=== PATIENT | male | born 1975 | race Caucasian/White ===

== ENCOUNTER 2018-12-03 00:37 | Emergency (ER) | payer MEDICAID ==
[~2018-12-03] VITALS: Ht 172.7 cm; Wt 73.0 kg
[2018-12-03] MEDS ORDERED: BACITRACIN ZINC OINT UDPKT TOP ONE (02:45)
[2018-12-03] MEDS ORDERED: LIDOCAINE 1%/EPI 1:100,000 10 ML VIAL IJ ONE (02:45)
[2018-12-03] MEDS ORDERED: HYDROCODONE/ACETAMINOPHEN 5/325MG TABLET PO ONE (02:45)
[2018-12-03] MEDS ORDERED: LIDOCAINE HCL/EPINEPHRINE 1%-EPI 1:100,000 20 ML VIAL INFIL NR (03:00)
[2018-12-03] MEDS ORDERED: CEFAZOLIN 1000MG PREMIX 50 ML IV ONE (04:30)
[2018-12-03] MEDS ORDERED: MORPHINE SULFATE 10 MG/ML CPJ IM ONE (05:00)
[2018-12-03] MEDS ORDERED: ONDANSETRON 4MG ODT PO ONE (05:00)
[2018-12-03] MEDS ORDERED: MORPHINE SULFATE 4 MG/ML CPJ (NOT FOR IM USE) IV NR (05:15)
[2018-12-03] MEDS ORDERED: KETOROLAC 60MG/2ML VIAL IM ONE (05:45)
[2018-12-03] MEDS ORDERED: HYDROCODONE/ACETAMINOPHEN 10/325MG TABLET PO ONE (07:00)
[2018-12-03 09:25] VITALS: BP 120/87
== END 2018-12-03 09:53 | disposition short-term general hospital (02) ==
LOC: ER 00:37
DX: S52.352A Displaced comminuted fracture of shaft of radius, left arm, initial encounter for closed fracture (principal); S52.252A Displaced comminuted fracture of shaft of ulna, left arm, initial encounter for closed fracture; F20.9 Schizophrenia, unspecified; Y08.89XA Assault by other specified means, initial encounter; Y93.89 Activity, other specified; Y92.89 Other specified places as the place of occurrence of the external cause; Y99.8 Other external cause status
CPT/HCPCS: 12002; 73090; 73130; 96365; 96366; 96372; 96375; 99285; J0690; J1885; J2270; J3490; Q0162

== ENCOUNTER 2019-03-12 19:10 | Emergency (ER) | payer SELFPAY ==
[~2019-03-12] VITALS: Ht 172.7 cm; Wt 80.0 kg
[2019-03-13 00:04] LABS: BASOPHILS % 0.8 % (0.0-2.0); EOSINOPHILS % 4.2 % (0.0-5.0); HEMATOCRIT. 40.3 % (42.0-52.0); HEMOGLOBIN. 13.2 g/dL (14.0-18.0); LYMPHOCYTES % 33.9 % (20.0-50.0); MEAN CORPUSCULAR HEMOGLOBIN 28.8 pg (28.0-32.0); MEAN CORPUSCULAR VOLUME 88.2 fL (80.0-94.0); MEAN PLATELET VOLUME 8.8 fl (7.4-10.4); MONOCYTES % 9.3 % (2.0-8.0); NEUTROPHILS % 51.8 % (40.0-76.0); PLATELET 265 x1000/uL (130-400); RED BLOOD CELL COUNT 4.56 mill/uL (4.7-6.1); RED CELL DISTRIBUTION WIDTH 14.9 % (11.6-14.6)
[2019-03-13 00:13] LABS: CHLORIDE 108 mEq/L (98-107)
[2019-03-13 00:16] LABS: ETHANOL BLOOD 104 mg/dL
[2019-03-13 00:45] LABS: CLARITY URINE CLEAR (CLEAR); COLOR URINE YELLOW (YELLOW); KETONES URINE NEGATIVE (NEGATIVE); LEUKOCYTE ESTERASE URINE NEGATIVE (NEGATIVE); NITRITE URINE NEGATIVE (NEGATIVE); OCCULT BLOOD URINE NEGATIVE (NEGATIVE); PROTEIN URINE NEGATIVE (NEGATIVE); SPECIFIC GRAVITY URINE 1.021 (1.005-1.030); UROBILINOGEN URINE 0.2 E.U./dL (0.2-1.0)
[2019-03-13 01:04] LABS: *AMPHETAMINES SCREEN URINE PRESUMTIVE POSITIVE (NEGATIVE); *BARBITURATES SCREEN URINE NEGATIVE (NEGATIVE)
[2019-03-13 01:05] LABS: *BENZODIAZEPINES SCREEN URINE PRESUMTIVE POSITIVE (NEGATIVE); *COCAINE SCREEN URINE NEGATIVE (NEGATIVE); METHADONE URINE SCREEN NEGATIVE (NEGATIVE); OPIATES URINE SCREEN NEGATIVE (NEGATIVE)
[2019-03-13 01:06] LABS: CANNABINOID URINE SCREEN PRESUMTIVE POSITIVE (NEGATIVE); PHENCYCLIDINE URINE SCREEN PRESUMTIVE POSITIVE (NEGATIVE)
[2019-03-13 06:44] VITALS: BP 126/73
== END 2019-03-13 06:54 | disposition home or self-care (01) ==
LOC: ER 19:17
DX: F15.10 Other stimulant abuse, uncomplicated (principal); F16.10 Hallucinogen abuse, uncomplicated; R41.82 Altered mental status, unspecified; F20.9 Schizophrenia, unspecified; F12.10 Cannabis abuse, uncomplicated; E87.6 Hypokalemia; D64.9 Anemia, unspecified; F10.10 Alcohol abuse, uncomplicated; Y90.5 Blood alcohol level of 100-119 mg/100 ml
CPT/HCPCS: 36415; 80053; 80305; 80320; 81003; 85025; 99283; Z7610; G0480

== ENCOUNTER 2019-06-13 23:35 | Emergency (ER) | payer MEDICAID ==
[~2019-06-13] VITALS: Ht 172.7 cm; Wt 78.0 kg
[2019-06-14] MEDS ORDERED: KETOROLAC 60MG/2ML VIAL IM STA (01:17)
[2019-06-14 11:03] VITALS: BP 112/78
== END 2019-06-14 11:09 | disposition home or self-care (01) ==
LOC: ER 23:35
DX: M79.672 Pain in left foot (principal); F12.10 Cannabis abuse, uncomplicated; F15.10 Other stimulant abuse, uncomplicated; F16.10 Hallucinogen abuse, uncomplicated; Z59.0 Homelessness; Z87.828 Personal history of other (healed) physical injury and trauma
CPT/HCPCS: 73630; 96372; 99283; J1885

== ENCOUNTER 2020-05-21 13:25 | Emergency (ER) | payer MEDICAID ==
[~2020-05-21] VITALS: Ht 177.8 cm; Wt 90.0 kg
[2020-05-21 13:37] VITALS: BP 126/87
[2020-05-21] MEDS ORDERED: KETOROLAC 30MG/ML VIAL IV STA (14:37)
[2020-05-21] MEDS ORDERED: SODIUM CHLORIDE 0.9% 1,000 ML IV ONE (14:45)
[2020-05-21] MEDS ORDERED: TETANUS, DIPHTHERIA, PERTUSSIS VAC/PF 0.5ML (>7YR OLD) IM ONE (14:45)
[2020-05-21 14:50] LABS: BASOPHILS % 0.3 % (0.0-2.0); EOSINOPHILS % 1.6 % (0.0-5.0); HEMATOCRIT. 41.5 % (42.0-52.0); HEMOGLOBIN. 13.9 g/dL (14.0-18.0); LYMPHOCYTES % 24.4 % (20.0-50.0); MEAN CORPUSCULAR HEMOGLOBIN 30.5 pg (28.0-32.0); MEAN PLATELET VOLUME 9.1 fl (7.4-10.4); MONOCYTES % 14.5 % (2.0-8.0); NEUTROPHILS % 59.2 % (40.0-76.0); PLATELET 240 x1000/uL (130-400); RED BLOOD CELL COUNT 4.56 mill/uL (4.7-6.1); RED CELL DISTRIBUTION WIDTH 13.7 % (11.6-14.6)
[2020-05-21 14:52] LABS: CHLORIDE 105 mEq/L (98-107)
[2020-05-21 14:56] LABS: ETHANOL BLOOD < 10 mg/dL
== END 2020-05-21 15:23 | disposition left against medical advice (07) ==
LOC: ER 13:25
DX: S01.21XA Laceration without foreign body of nose, initial encounter (principal); S01.119A Laceration without foreign body of unspecified eyelid and periocular area, initial encounter; F14.10 Cocaine abuse, uncomplicated; F12.10 Cannabis abuse, uncomplicated; F15.10 Other stimulant abuse, uncomplicated; F11.20 Opioid dependence, uncomplicated; F19.10 Other psychoactive substance abuse, uncomplicated; R41.82 Altered mental status, unspecified; X58.XXXA Exposure to other specified factors, initial encounter; Y93.89 Activity, other specified; Y92.89 Other specified places as the place of occurrence of the external cause; Y99.8 Other external cause status
CPT/HCPCS: 36415; 80053; 80320; 85025; 93005; 99284; J7030; 90715; J1885; G0480

== ENCOUNTER 2020-09-07 19:32 | Emergency (ER) | payer MEDICAID ==
[~2020-09-07] VITALS: Ht 172.7 cm; Wt 77.0 kg
[2020-09-07 21:59] VITALS: BP 126/86
== END 2020-09-07 22:02 | disposition home or self-care (01) ==
LOC: ER 19:32
DX: F16.129 Hallucinogen abuse with intoxication, unspecified (principal); R41.82 Altered mental status, unspecified; F14.10 Cocaine abuse, uncomplicated; F12.10 Cannabis abuse, uncomplicated; F11.10 Opioid abuse, uncomplicated; F15.10 Other stimulant abuse, uncomplicated
CPT/HCPCS: 93005; 99283

== ENCOUNTER 2022-02-24 14:12 | Emergency (ER) | payer MEDICAID ==
[~2022-02-24] VITALS: Ht 172.7 cm; Wt 77.0 kg
[2022-02-24] MEDS ORDERED: SODIUM CHLORIDE 0.9% 1,000 ML IV ONE (14:30)
[2022-02-24 14:57] LABS: BASOPHILS % 0.5 % (0.0-2.0); EOSINOPHILS % 0.2 % (0.0-5.0); HEMATOCRIT. 45.6 % (42.0-52.0); HEMOGLOBIN. 15.3 g/dL (14.0-18.0); LYMPHOCYTES % 18.6 % (20.0-50.0); MEAN CORPUSCULAR VOLUME 95.2 fL (80.0-94.0); MEAN PLATELET VOLUME 9.3 fl (7.4-10.4); MONOCYTES % 10.6 % (2.0-8.0); NEUTROPHILS % 70.1 % (40.0-76.0); PLATELET 299 x1000/uL (130-400); RED BLOOD CELL COUNT 4.78 mill/uL (4.7-6.1); RED CELL DISTRIBUTION WIDTH 15.4 % (11.6-14.6)
[2022-02-24 15:00] LABS: CHLORIDE 108 mEq/L (98-107)
[2022-02-24 15:09] LABS: ETHANOL BLOOD 196 mg/dL
[2022-02-24 15:24] LABS: *AMPHETAMINES SCREEN URINE NEGATIVE (NEGATIVE); *BARBITURATES SCREEN URINE NEGATIVE (NEGATIVE); *BENZODIAZEPINES SCREEN URINE NEGATIVE (NEGATIVE); *COCAINE SCREEN URINE NEGATIVE (NEGATIVE); CANNABINOID URINE SCREEN PRESUMTIVE POSITIVE (NEGATIVE); METHADONE URINE SCREEN NEGATIVE (NEGATIVE); OPIATES URINE SCREEN NEGATIVE (NEGATIVE); PHENCYCLIDINE URINE SCREEN PRESUMTIVE POSITIVE (NEGATIVE)
[2022-02-24 17:33] VITALS: BP 106/59
[2022-02-24] MEDS ORDERED: IBUP-2028 MT (17:53)
== END 2022-02-24 18:30 | disposition home or self-care (01) ==
LOC: ER 14:12
DX: R41.82 Altered mental status, unspecified (principal); S02.2XXA Fracture of nasal bones, initial encounter for closed fracture; F12.10 Cannabis abuse, uncomplicated; F14.10 Cocaine abuse, uncomplicated; F11.10 Opioid abuse, uncomplicated; F15.10 Other stimulant abuse, uncomplicated; Z98.890 Other specified postprocedural states; Y04.0XXA Assault by unarmed brawl or fight, initial encounter; Y93.89 Activity, other specified; Y92.89 Other specified places as the place of occurrence of the external cause; Y99.8 Other external cause status
CPT/HCPCS: 36415; 70450; 70486; 71045; 72125; 80053; 80305; 80320; 82962; 84484; 85025; 93005; 96360; 99285; J7030; G0480